=== PATIENT | male | born 1945 | race Caucasian/White ===

== ENCOUNTER 2021-04-12 01:03 | Outpatient (CLI) | payer MEDICARE, BC, SELFPAY ==
--- NOTE | 2021-04-12 | DI.NM_ITS ---
APPROVED REPORT Exam: Pharmacologic Patient Location: Out-Patient Room/Bed: Stress Nurse: Nilsa Campbell RN Ordering Provider:JOANNE LINK MD Contact Number: [phone] BMI: 26.44 Baseline Rhythm: Atrial Fibrillation, RBBB Comment: Occasional PVCs Indications: Chest pain Medical History Medical History: AFib, hypertension, hyperlipidemia, diabetes, CVD, anemia, depression, malignant pro state tumor, malignant neoplasm of kidney Cardiac Medications: Metoprolol tartrate, diltiazem, atorvastatin Allergies: NKA Cardiac Risk Factors: Hypertension, hyperlipidemia, diabetes, CVD, family hx Previous Cardiac Procedures: Angioplasty (2007), cardiac ablation (2013), cardoversion (03/22/2021) Pretest Chest Pain Characteristics: None Exercise History: Physically active Physical Disabilities: None Lung Sounds: Clear to auscultation Heart Sounds: Regular Stress Test Details Test: Pharmacologic stress was paired with low level exercise. Reason for pharmacologic stress test: elevated BP. Nuclear Acquisition: Rest Tc-99m/Stress Tc-99m 1 day Rest Isotope: Tc-99m Sestamibi. Dose: 10.3 Date: 04/12/2021 Injection Time: 1050 Stress Isotope: Tc-99m Sestamibi. Dose: 30.8 Date: 04/12/2021 Injection Time: 1225 HR Resting HR Supine: 102 bpm Max Heart Rate (APMHR): 147.598986 bpm Resting HR Standin bpm Target HR (85% APMHR): 124.711403 bpm Max HR Achieved: 152 bpm % of APMHR: 103.40 Recovery HR: 108 bpm Comment: Metoprolol tartrate and diltiazem held for 24 hrs BP Resting BP Supine: 152/115 mmHg Resting BP Standin/115 mmHg Max BP: 152/115 mmHg Recovery BP: 142/115 mmHg ECG Resting ECG: Atrial Fibrillation, RBBB Ectopy: Occasional PVC Stress ECG: Atrial Fibrillation, RBBB ST Change: No significant ST segment changes noted Arrhythmia: Occasional PVC Recovery ECG: Atrial Fibrillation, RBBB Recovery ST Change: No significant ST segment changes noted Recovery Arrhythmia: Occasional PVC Clinical Reason for Termination: N/A Stress Symptoms: None Rate Pressure Product: [id number] Stress ECG Conclusion 1. The patient was in atrial fibrillation throughout. 2. With low-level stress there was no evidence of ischemia. 3. The EKG portion of this exam is nondiagnostic. Stress Test Summary STAGE HR BP Symptoms NOTES Supine 102 152/115 SpO2 98% AFib, HR 100-120s at rest 1 min post Lexiscan injection 119 146/115 SpO2 98% 3 min post Lexiscan injection 132 144/95 SpO2 99% 6 min post Lexiscan injection 132 144/108 SpO2 98% 9 min post Lexiscan injection 107 142/115 SpO2 98% Elevated BP when pt supine at start of testing, asymptomatic. Okay to proceed w/ walking pharmacologi c test per MD Marquez. Pt ambulated at 1.7mph and 0% grade during pharmacologic administration, tolera aron well. MPI Conclusion The ejection fraction was 32% with stress. There were no wall motion abnormalities global hypokinesi s. There was no evidence of ischemia or infarct on the imaging portion of this exam. Radiologist Interpretation Radiologist Interpretation by: Andres Chavez MD Interpretation Date/Time: 04/12/2021 16:54:15
[2021-04-12] MEDS: Regadenoson 0.4 MG/5 ML SYR IVP (13:20)
== END 2021-04-12 01:23 ==
PROVIDERS: PCP Internal Medicine; Visit Provider Internal Medicine Interventional Cardiology
DX: R07.9 Chest pain, unspecified (principal); I48.91 Unspecified atrial fibrillation; I45.19 Other right bundle-branch block; I49.3 Ventricular premature depolarization; I10 Essential (primary) hypertension; E78.5 Hyperlipidemia, unspecified; E11.9 Type 2 diabetes mellitus without complications; I25.10 Atherosclerotic heart disease of native coronary artery without angina pectoris; Z82.49 Family history of ischemic heart disease and other diseases of the circulatory system
CPT/HCPCS: 78452; 93016; 93018; 93017; J2785